=== PATIENT | male | born 1945 | race Caucasian/White ===

== ENCOUNTER 2023-06-19 09:12 | Outpatient (CLI) | payer MEDICARE, OTHER ==
[2023-06-19 10:04] LABS: Hemoglobin 17.1 g/dL (13.5-17.5); Mean Corpuscular HGB CONC 33.3 g/dL (32.0-36.0); Mean Corpuscular Hemoglobin 31.4 pg (27.0-33.0); Mean Corpuscular Volume 94.3 fl (81.2-95.1); Mean Platelet Volume 11.1 fl (7.4-10.4); Platelet Count 159 10x3/uL (150-450); RBC Distribution Width 13.5 % (11.5-14.5); Red Blood Cell (RBC) Count 5.44 10x6/uL (4.32-5.72); White Blood Cell (WBC) Count 6.9 10x3/uL (3.5-10.5)
[2023-06-19 10:36] LABS: Anion Gap 16 mmol/L (10-20); BUN (Urea Nitrogen) 27 mg/dL (8.4-25.7); Calc. Creatinine Clearance 0 mL/min (70-130); Calcium 8.8 mg/dL (7.8-10.44); Carbon Dioxide 20 mmol/L (23-31); Chloride 107 mmol/L (98-107); Estimated GFR 44; Glucose 125 mg/dL (83-110); Potassium 4.8 mmol/L (3.5-5.1); Sodium 138 mmol/L (136-145)
== END 2023-06-19 09:13 | disposition home or self-care (01) ==
LOC: LABBT 09:12
PROVIDERS: ATTEND Neurological Surgery
DX: Z01.818 Encounter for other preprocedural examination (principal); M54.12 Radiculopathy, cervical region
CPT/HCPCS: 80048; 85027; 93005; 93010

== ENCOUNTER 2023-06-19 09:30 | Inpatient (IN) | payer MEDICARE ==
[2023-06-24] MEDS ORDERED: Lidocaine 1% MPF 2 ML VIAL ONE (13:08)
[2023-06-24] MEDS ORDERED: Fentanyl 250 MCG/5 ML VIAL ONE (13:53)
[2023-06-24] MEDS ORDERED: CEFAZOLIN 2 GM VIAL ONE (14:09)
[2023-06-24] MEDS ORDERED: Sodium Chloride 0.9% 100 ML ONE (14:09)
[2023-06-24] MEDS ORDERED: Lidocaine 1% PF 5 ML VIAL ONE (14:23)
[2023-06-24] MEDS ORDERED: PROPOFOL 200 MG/20 ML VIAL ONE ×2 (14:23→17:31)
[2023-06-24] MEDS ORDERED: Rocuronium Bromide 10 MG/ML (10ML VIAL) ONE (14:23)
[2023-06-24] MEDS ORDERED: Esmolol 100 MG/10 ML VIAL ONE (14:23)
[2023-06-24] MEDS ORDERED: Dexamethasone 20 MG/5 ML VIAL ONE (14:23)
[2023-06-24] MEDS ORDERED: Ondansetron PF 4 MG/2 ML Vial ONE (14:23)
[2023-06-24] MEDS ORDERED: Promethazine HCl 25 MG/ML VIAL IM PRN ×2 (15:25→16:32)
[2023-06-24] MEDS ORDERED: Ondansetron HCl/PF 4 MG/2 ML Vial IVP PRN ×2 (15:25→16:32)
[2023-06-24] MEDS ORDERED: traMADol HCl 50 MG TAB PO PRN (15:39)
[2023-06-24] MEDS ORDERED: Promethazine 25 MG TAB PO PRN (15:39)
[2023-06-24] MEDS ORDERED: Mag-Al 1200 mg/1200 mg/30 ML UDCUP PO PRN (15:39)
[2023-06-24] MEDS ORDERED: Cyclobenzaprine 10 MG TAB PO PRN (15:39)
[2023-06-24] MEDS ORDERED: Acetaminophen/Codeine 30-300mg Tablet PO PRN ×2 (15:39)
[2023-06-24] MEDS ORDERED: Milk Of Magnesia 30 ML UDCUP PO PRN (15:39)
[2023-06-24] MEDS ORDERED: diphenhydrAMINE 50 MG/ML VIAL IVP PRN (15:39)
[2023-06-24] MEDS ORDERED: Morphine 2 MG/ML VIAL SLOW IVP PRN ×2 (15:39→19:30)
[2023-06-24] MEDS ORDERED: Acetaminophen 325 MG TAB PO PRN (15:39)
[2023-06-24] MEDS ORDERED: Melatonin 3 MG TAB PO PRN ×3 (15:41→16:30)
[2023-06-24] MEDS ORDERED: Zolpidem Tartrate 5 MG TAB PO PRN (15:42)
[2023-06-24] MEDS ORDERED: fentaNYL 50 mcg/mL 1 mL Vial ONE ×3 (16:06→18:19)
[2023-06-24] MEDS ORDERED: Labetalol HCl 100 MG/20 ML VIAL ONE (16:30)
[2023-06-24] MEDS ORDERED: Morphine 2 MG/ML VIAL ONE (16:30)
[2023-06-24] MEDS ORDERED: PACU-Morphine 4MG/ML VIAL SLOW IVP PRN (16:32)
[2023-06-24] MEDS ORDERED: HYDROmorphone 2 MG/ML VIAL SLOW IVP PRN (16:32)
[2023-06-24] MEDS ORDERED: Morphine Sulfate 2 MG/ML SYRINGE SLOW IVP PRN (16:32)
[2023-06-24] MEDS ORDERED: Adenosine 6 MG/2 ML VIAL ONE (16:58)
[2023-06-24] MEDS ORDERED: Ipratropium/Albuterol 3 ML NEB ONE (16:58)
[2023-06-24] MEDS ORDERED: Dexamethasone 4 mg/ml Vial ONE (16:58)
[2023-06-24] MEDS ORDERED: Midazolam HCl 2 mg/2 ml Vial ONE ×2 (17:02→17:15)
[2023-06-24] MEDS ORDERED: SUGAMMADEX SODIUM 200 MG/2 ML VIAL ONE (17:07)
[2023-06-24] MEDS ORDERED: CEFAZOLIN 1 GM VIAL ONE (17:29)
[2023-06-24] MEDS ORDERED: PROPOFOL 20 ML ONE (17:29)
[2023-06-24] MEDS ORDERED: Thrombin 5000 UNITS/5 ML VIAL ONE (17:30)
[2023-06-24] MEDS ORDERED: Vancomycin 1 GM VIAL ONE ×2 (17:30→17:40)
[2023-06-24] MEDS ORDERED: Vecuronium 10 MG VIAL ONE (17:31)
[2023-06-24] MEDS ORDERED: PHENYLEPHRINE-NS 100 MCG/ML 10 ML SYRINGE ONE (17:31)
[2023-06-24] MEDS ORDERED: Norepinephrine 4 MG/4 ML VIAL ONE (17:41)
[2023-06-24] MEDS ORDERED: Ventilator Sedation Protocol 1 EACH FS SCH (19:25)
[2023-06-24] MEDS ORDERED: Electrolyte Replacement Protocol 1 EACH FS ONE (19:25)
[2023-06-24 19:27] LABS: Actual Bicarbonate (HCO3a) 21.8 mEq/L (22-28); Base Excess (BEa) -3.1 mEq/L (-2.0 to +3.0); CO2 Tension 39.1 mmHg (35.0-45.0); Calcium, Ionized (arterial) 1.12 mmol/L (1.12-1.30); Carboxyhemoglobin (COHb) 0.5 gm% (0.0-3.0); Hematocrit-ABG 49 % (42.0-52.0); Hemoglobin (Hb) 16.8 g/dL (14.0-18.0); Potassium - ABG Lab 4.48 mmol/L (3.70-5.30); pH, Arterial 7.365 (7.35-7.45)
[2023-06-24 19:28] LABS: Puncture Site RRA
[2023-06-24 19:29] LABS: ALV-art Gradient 213.625 mmHg (0-20)
[2023-06-24] MEDS ORDERED: Electrolyte Replacement Protocol FS PRN (19:30)
[2023-06-24] MEDS ORDERED: Propofol BOLUS 1,000 MG/100 ML VIAL IV PRN (19:30)
[2023-06-24] MEDS ORDERED: Fentanyl BOLUS 250 ML IVPB PRN (19:30)
[2023-06-24] MEDS ORDERED: Fentanyl CADD 100 ML IV SCH (19:30)
[2023-06-24] MEDS ORDERED: DISCONTINUE PREVIOUS NARCOTIC PAIN MEDICATIONS AND BENZODIAZEPINES FS SCH (19:30)
[2023-06-24 20:03] LABS: #Monocytes 0.3 thou/uL (0.11-0.59); #Neutrophils 15.7 thou/uL (1.40-6.50); %Basophils 0.2 % (0.0-1.0); %Eosinophils 0.1 % (0.0-10.0); %Lymphocytes 2.7 % (21.0-51.0); %Monocytes 1.6 % (0.0-10.0); Hemoglobin 16.4 g/dL (14.0-18.0); Mean Corpuscular HGB CONC 32.2 g/dL (32.0-36.0); Mean Corpuscular Volume 96.4 fl (78.0-98.0); Mean Platelet Volume 10.8 fL (7.4-10.4); Platelet Count 148 10x3/uL (130-400); RBC Distribution Width 13.6 % (11.5-14.5); Red Blood Cell (RBC) Count 5.29 mill/uL (4.70-6.10); White Blood Cell (WBC) Count 16.5 10x3/uL (4.8-10.8)
[2023-06-24] MEDS: Dexamethasone 4 mg/ml Vial SLOW IVP SCH (20:22)
[2023-06-24] MEDS: Sodium Chloride 0.9% 1,000 ML IV SCH (20:22)
[2023-06-24] MEDS ORDERED: Fentanyl CADD 100 ML ONE (20:32)
[2023-06-24 20:33] LABS: Anion Gap 15 mmol/L (10-20); BUN (Urea Nitrogen) 20 mg/dL (8.4-25.7); Calc. Creatinine Clearance 43 mL/min (70-130); Calcium 8.3 mg/dL (7.8-10.44); Carbon Dioxide 23 mmol/L (23-31); Chloride 105 mmol/L (98-107); Estimated GFR 47; Glucose 170 mg/dL (83-110); Potassium 4.7 mmol/L (3.5-5.1); Sodium 138 mmol/L (136-145)
[2023-06-24] MEDS: CEFAZOLIN 2 GM in Sodium Chloride 0.9% 100 ML IVPB SCH (22:56)
[2023-06-25] MEDS: Dexamethasone 4 mg/ml Vial SLOW IVP SCH ×5 (01:25→23:41)
[2023-06-25] MEDS: Propofol 1,000 MG/100 ML VIAL IV PRN ×3 (01:25→10:05)
[2023-06-25 04:49] LABS: Anion Gap 8 mmol/L (10-20); BUN (Urea Nitrogen) 22 mg/dL (8.4-25.7); Calc. Creatinine Clearance 44 mL/min (70-130); Calcium 7.9 mg/dL (7.8-10.44); Carbon Dioxide 17 mmol/L (23-31); Chloride 112 mmol/L (98-107); Estimated GFR 49; Glucose 175 mg/dL (83-110); Potassium 4.9 mmol/L (3.5-5.1); Sodium 132 mmol/L (136-145)
[2023-06-25] MEDS: CEFAZOLIN 2 GM in Sodium Chloride 0.9% 100 ML IVPB SCH ×3 (05:09→21:50)
[2023-06-25] MEDS: Sodium Chloride 0.9% 1,000 ML IV SCH ×3 (05:10→22:56)
[2023-06-25 07:02] LABS: Actual Bicarbonate (HCO3a) 18.5 mEq/L (22-28); Base Excess (BEa) -4.8 mEq/L (-2.0 to +3.0); CO2 Tension 30.4 mmHg (35.0-45.0); Calcium, Ionized (arterial) 1.07 mmol/L (1.12-1.30); Carboxyhemoglobin (COHb) 1.1 gm% (0.0-3.0); Hematocrit-ABG 46 % (42.0-52.0); Hemoglobin (Hb) 15.5 g/dL (14.0-18.0); O2 Tension (PaO2), arterial 133.7 mmHg (> 70.0); Potassium - ABG Lab 4.66 mmol/L (3.70-5.30); pH, Arterial 7.403 (7.35-7.45)
[2023-06-25 07:03] LABS: Puncture Site RRA
[2023-06-25] MEDS: Pantoprazole 40 MG VIAL IVP SCH (08:14)
[2023-06-25 10:05] LABS: INR-International Normal Ratio 1.1; PTT 26.9 sec (22.9-36.1); Prothrombin Time 15.1 sec (12.0-14.7)
[2023-06-25] MEDS: Lorazepam 2 MG/ML VIAL SLOW IVP PRN ×2 (10:57→13:57)
[2023-06-26] MEDS ORDERED: Fentanyl CADD 100 ML ONE (00:56)
[2023-06-26] MEDS: CEFAZOLIN 2 GM in Sodium Chloride 0.9% 100 ML IVPB SCH ×3 (06:16→21:43)
[2023-06-26] MEDS: Dexamethasone 4 mg/ml Vial SLOW IVP SCH ×3 (06:16→17:28)
[2023-06-26] MEDS: Sodium Chloride 0.9% 1,000 ML IV SCH ×3 (06:17→21:34)
[2023-06-26] MEDS: Propofol 1,000 MG/100 ML VIAL IV PRN ×2 (06:19→18:05)
[2023-06-26] MEDS: Ondansetron PF 4 MG/2 ML Vial IVP PRN (06:34)
[2023-06-26 07:22] LABS: Actual Bicarbonate (HCO3a) 20.8 mEq/L (22-28); Base Excess (BEa) -5.8 mEq/L (-2.0 to +3.0); CO2 Tension 44.4 mmHg (35.0-45.0); Calcium, Ionized (arterial) 1.09 mmol/L (1.12-1.30); Carboxyhemoglobin (COHb) 0.6 gm% (0.0-3.0); Hematocrit-ABG 47 % (42.0-52.0); Hemoglobin (Hb) 15.9 g/dL (14.0-18.0); O2 Tension (PaO2), arterial 103.9 mmHg (> 70.0); Puncture Site LRA; pH, Arterial 7.288 (7.35-7.45)
[2023-06-26] MEDS: Pantoprazole 40 MG VIAL IVP SCH (08:45)
[2023-06-26] MEDS ORDERED: chlorproMAZINE HCl 50 MG/2 ML AMP SLOW IVP PRN (08:54)
[2023-06-26 09:44] LABS: #Monocytes 0.6 thou/uL (0.11-0.59); #Neutrophils 14.3 thou/uL (1.40-6.50); %Basophils 0.1 % (0.0-1.0); %Lymphocytes 3.2 % (21.0-51.0); %Monocytes 3.6 % (0.0-10.0); %Neutrophils 92.6 % (42.0-75.0); Hematocrit 43.2 % (42.0-52.0); Hemoglobin 13.9 g/dL (14.0-18.0); Mean Corpuscular HGB CONC 32.2 g/dL (32.0-36.0); Mean Corpuscular Hemoglobin 31.3 pg (27.0-31.0); Mean Corpuscular Volume 97.3 fl (78.0-98.0); Mean Platelet Volume 11.6 fL (7.4-10.4); Platelet Count 148 10x3/uL (130-400); RBC Distribution Width 13.8 % (11.5-14.5); Red Blood Cell (RBC) Count 4.44 mill/uL (4.70-6.10); White Blood Cell (WBC) Count 15.5 10x3/uL (4.8-10.8)
[2023-06-26 10:08] LABS: ALT (SGPT) 9 U/L (8-55); AST (SGOT) 28 U/L (5-34); Albumin 3.2 g/dL (3.4-4.8); Alkaline Phosphatase 56 U/L (40-110); Anion Gap 8 mmol/L (10-20); BUN (Urea Nitrogen) 29 mg/dL (8.4-25.7); Bilirubin, Total Less than 1.0 mg/dL (0.2-1.2); Calc. Creatinine Clearance 52 mL/min (70-130); Calcium 7.6 mg/dL (7.8-10.44); Carbon Dioxide 25 mmol/L (23-31); Chloride 110 mmol/L (98-107); Estimated GFR 53; Globulin 2.3 g/dL (2.4-3.5); Glucose 177 mg/dL (83-110); Potassium 4.2 mmol/L (3.5-5.1); Protein, Total 5.5 g/dL (5.8-8.1); Sodium 139 mmol/L (136-145)
[2023-06-27] MEDS: Dexamethasone 4 mg/ml Vial SLOW IVP SCH ×4 (00:18→21:24)
[2023-06-27] MEDS: Sodium Chloride 0.9% 1,000 ML IV SCH ×2 (00:32→05:21)
[2023-06-27 03:37] LABS: #Monocytes 0.4 thou/uL (0.11-0.59); %Basophils 0.1 % (0.0-1.0); %Lymphocytes 2.4 % (21.0-51.0); %Monocytes 3.2 % (0.0-10.0); %Neutrophils 93.8 % (42.0-75.0); Hematocrit 42.7 % (42.0-52.0); Hemoglobin 13.6 g/dL (14.0-18.0); Mean Corpuscular HGB CONC 31.9 g/dL (32.0-36.0); Mean Corpuscular Volume 97.3 fl (78.0-98.0); Mean Platelet Volume 12.1 fL (7.4-10.4); Platelet Count 134 10x3/uL (130-400); Red Blood Cell (RBC) Count 4.39 mill/uL (4.70-6.10); White Blood Cell (WBC) Count 12.8 10x3/uL (4.8-10.8)
[2023-06-27 04:07] LABS: ALT (SGPT) 8 U/L (8-55); AST (SGOT) 27 U/L (5-34); Albumin 3.2 g/dL (3.4-4.8); Alkaline Phosphatase 52 U/L (40-110); Anion Gap 16 mmol/L (10-20); BUN (Urea Nitrogen) 33 mg/dL (8.4-25.7); Bilirubin, Total 0.5 mg/dL (0.2-1.2); Calc. Creatinine Clearance 57 mL/min (70-130); Calcium 7.7 mg/dL (7.8-10.44); Carbon Dioxide 19 mmol/L (23-31); Chloride 112 mmol/L (98-107); Estimated GFR 59; Globulin 2.2 g/dL (2.4-3.5); Glucose 179 mg/dL (83-110); Potassium 4.5 mmol/L (3.5-5.1); Protein, Total 5.4 g/dL (5.8-8.1); Sodium 142 mmol/L (136-145)
[2023-06-27] MEDS: CEFAZOLIN 2 GM in Sodium Chloride 0.9% 100 ML IVPB SCH ×3 (05:21→21:24)
[2023-06-27] MEDS: Pantoprazole 40 MG VIAL IVP SCH (08:10)
[2023-06-27] MEDS: Labetalol HCl 100 MG/20 ML VIAL SLOW IVP PRN ×3 (08:10→18:11)
[2023-06-27] MEDS: Ondansetron PF 4 MG/2 ML Vial IVP PRN ×2 (09:58→18:16)
[2023-06-27] MEDS: Ipratropium Bromide 2.5 ml Neb NEB SCH ×3 (13:30→23:40)
[2023-06-27] MEDS ORDERED: Morphine 2 MG/ML VIAL SLOW IVP PRN (14:11)
[2023-06-27] MEDS: Morphine 2 MG/ML VIAL SLOW IVP PRN ×2 (14:28→18:09)
[2023-06-27] MEDS: fentaNYL 50 mcg/mL 1 mL Vial SLOW IVP PRN ×2 (16:10→19:59)
[2023-06-27] MEDS: Lidocaine 4% Patch TD SCH (20:00)
[2023-06-27] MEDS ORDERED: fentaNYL 50 mcg/mL 1 mL Vial SLOW IVP SCH (20:30)
[2023-06-27] MEDS ORDERED: Labetalol HCl 100 MG/20 ML VIAL SLOW IVP SCH (20:30)
[2023-06-27] MEDS: niCARdipine 25 MG in Sodium Chloride 0.9% 250 ML 250 ML IVPB SCH (21:23)
[2023-06-27] MEDS ORDERED: Promethazine HCl 12.5 MG in Sodium Chloride 0.9% 50 ML IVPB SCH (21:30)
[2023-06-27] MEDS ORDERED: Furosemide 40 MG/4 ML VIAL ONE (22:12)
[2023-06-27] MEDS ORDERED: Furosemide 40 MG/4 ML VIAL SLOW IVP SCH (22:15)
[2023-06-27] MEDS ORDERED: Nitroglycerin 2% Ointment 1 INCH/1 GM Packet ONE (22:23)
[2023-06-27] MEDS ORDERED: Nitroglycerin 2% Ointment 1 INCH/1 GM Packet TOP SCH (22:30)
[2023-06-27 22:31] LABS: Actual Bicarbonate (HCO3a) 23.3 mEq/L (22-28); Base Excess (BEa) -2.6 mEq/L (-2.0 to +3.0); CO2 Tension 43.8 mmHg (35.0-45.0); Calcium, Ionized (arterial) 1.15 mmol/L (1.12-1.30); Carboxyhemoglobin (COHb) 0.9 gm% (0.0-3.0); Hematocrit-ABG 50 % (42.0-52.0); Hemoglobin (Hb) 17.1 g/dL (14.0-18.0); O2 Tension (PaO2), arterial 108.3 mmHg (> 70.0); Potassium - ABG Lab 4.51 mmol/L (3.70-5.30); Puncture Site RRA; pH, Arterial 7.343 (7.35-7.45)
[2023-06-27 22:40] LABS: #Monocytes 1.3 thou/uL (0.11-0.59); #Neutrophils 18.2 thou/uL (1.40-6.50); %Basophils 0.1 % (0.0-1.0); %Monocytes 6.3 % (0.0-10.0); %Neutrophils 89.7 % (42.0-75.0); Hemoglobin 16.4 g/dL (14.0-18.0); Mean Corpuscular HGB CONC 32.8 g/dL (32.0-36.0); Mean Corpuscular Hemoglobin 31.4 pg (27.0-31.0); Mean Corpuscular Volume 95.8 fl (78.0-98.0); Mean Platelet Volume 11.5 fL (7.4-10.4); Platelet Count 184 10x3/uL (130-400); Red Blood Cell (RBC) Count 5.22 mill/uL (4.70-6.10); White Blood Cell (WBC) Count 20.3 10x3/uL (4.8-10.8)
[2023-06-27 22:55] LABS: Lactic Acid 2.1 mmol/L (0.5-2.2)
[2023-06-27 23:04] LABS: ALT (SGPT) 11 U/L (8-55); AST (SGOT) 30 U/L (5-34); Albumin 3.9 g/dL (3.4-4.8); Alkaline Phosphatase 68 U/L (40-110); Anion Gap 15 mmol/L (10-20); BUN (Urea Nitrogen) 32 mg/dL (8.4-25.7); Calc. Creatinine Clearance 55 mL/min (70-130); Calcium 8.3 mg/dL (7.8-10.44); Carbon Dioxide 21 mmol/L (23-31); Chloride 112 mmol/L (98-107); Estimated GFR 55; Globulin 2.4 g/dL (2.4-3.5); Glucose 172 mg/dL (83-110); Potassium 4.7 mmol/L (3.5-5.1); Protein, Total 6.3 g/dL (5.8-8.1); Sodium 143 mmol/L (136-145)
[2023-06-27 23:07] LABS: Magnesium 2.5 mg/dL (1.6-2.6)
[2023-06-27 23:19] LABS: Troponin I 1.995 ng/mL (< 0.028)
[2023-06-28 03:42] LABS: #Monocytes 0.8 thou/uL (0.11-0.59); #Neutrophils 13.7 thou/uL (1.40-6.50); %Basophils 0.1 % (0.0-1.0); %Lymphocytes 3.8 % (21.0-51.0); %Monocytes 5.1 % (0.0-10.0); %Neutrophils 90.4 % (42.0-75.0); Mean Corpuscular HGB CONC 31.9 g/dL (32.0-36.0); Mean Corpuscular Volume 97.1 fl (78.0-98.0); Mean Platelet Volume 11.7 fL (7.4-10.4); Platelet Count 156 10x3/uL (130-400); RBC Distribution Width 14.1 % (11.5-14.5); Red Blood Cell (RBC) Count 4.84 mill/uL (4.70-6.10); White Blood Cell (WBC) Count 15.1 10x3/uL (4.8-10.8)
[2023-06-28 04:13] LABS: ALT (SGPT) 10 U/L (8-55); AST (SGOT) 30 U/L (5-34); Albumin 3.3 g/dL (3.4-4.8); Alkaline Phosphatase 58 U/L (40-110); Anion Gap 17 mmol/L (10-20); BUN (Urea Nitrogen) 34 mg/dL (8.4-25.7); Calc. Creatinine Clearance 55 mL/min (70-130); Carbon Dioxide 20 mmol/L (23-31); Chloride 111 mmol/L (98-107); Estimated GFR 55; Globulin 2.5 g/dL (2.4-3.5); Glucose 147 mg/dL (83-110); Potassium 4.8 mmol/L (3.5-5.1); Protein, Total 5.8 g/dL (5.8-8.1); Sodium 143 mmol/L (136-145)
[2023-06-28] MEDS: CEFAZOLIN 2 GM in Sodium Chloride 0.9% 100 ML IVPB SCH ×3 (05:39→21:54)
[2023-06-28] MEDS: Dexamethasone 4 mg/ml Vial SLOW IVP SCH ×2 (05:39→09:37)
[2023-06-28] MEDS: Ipratropium Bromide 2.5 ml Neb NEB SCH (06:05)
[2023-06-28 07:20] LABS: Troponin I 3.672 ng/mL (< 0.028)
[2023-06-28] MEDS: fentaNYL 50 mcg/mL 1 mL Vial SLOW IVP PRN ×3 (07:41→18:29)
[2023-06-28] MEDS: Ondansetron PF 4 MG/2 ML Vial IVP PRN (09:36)
[2023-06-28] MEDS: Transdermal Patch Removal TOP SCH (09:49)
[2023-06-28] MEDS: Pantoprazole 40 MG VIAL IVP SCH (09:49)
[2023-06-28] MEDS ORDERED: Metoclopramide HCl 10 MG/2 ML VIAL IVP PRN (11:46)
[2023-06-28] MEDS: Ipratropium/Albuterol 3 ML NEB EZPAP SCH ×3 (12:01→22:05)
[2023-06-28] MEDS: niCARdipine 25 MG in Sodium Chloride 0.9% 250 ML 250 ML IVPB SCH ×2 (16:18→23:46)
[2023-06-28] MEDS: Lidocaine 4% Patch TD SCH (20:11)
[2023-06-29 04:12] LABS: #Monocytes 0.9 thou/uL (0.11-0.59); #Neutrophils 8.7 thou/uL (1.40-6.50); %Basophils 0.1 % (0.0-1.0); %Lymphocytes 6.5 % (21.0-51.0); %Monocytes 8.7 % (0.0-10.0); %Neutrophils 84.3 % (42.0-75.0); Hematocrit 49.5 % (42.0-52.0); Hemoglobin 16.1 g/dL (14.0-18.0); Mean Corpuscular HGB CONC 32.5 g/dL (32.0-36.0); Mean Corpuscular Hemoglobin 31.1 pg (27.0-31.0); Mean Corpuscular Volume 95.6 fl (78.0-98.0); Mean Platelet Volume 11.1 fL (7.4-10.4); Platelet Count 150 10x3/uL (130-400); RBC Distribution Width 13.6 % (11.5-14.5); Red Blood Cell (RBC) Count 5.18 mill/uL (4.70-6.10); White Blood Cell (WBC) Count 10.3 10x3/uL (4.8-10.8)
[2023-06-29 04:36] LABS: ALT (SGPT) 8 U/L (8-55); AST (SGOT) 26 U/L (5-34); Albumin 3.4 g/dL (3.4-4.8); Alkaline Phosphatase 58 U/L (40-110); Anion Gap 12 mmol/L (10-20); BUN (Urea Nitrogen) 30 mg/dL (8.4-25.7); Bilirubin, Total 1.7 mg/dL (0.2-1.2); Calc. Creatinine Clearance 67 mL/min (70-130); Calcium 8.3 mg/dL (7.8-10.44); Carbon Dioxide 24 mmol/L (23-31); Chloride 109 mmol/L (98-107); Estimated GFR 70; Globulin 2.4 g/dL (2.4-3.5); Glucose 127 mg/dL (83-110); Potassium 3.8 mmol/L (3.5-5.1); Protein, Total 5.8 g/dL (5.8-8.1); Sodium 141 mmol/L (136-145)
[2023-06-29 04:43] LABS: Critical Call Chem Troponin I RESULT DECREASING
[2023-06-29] MEDS: CEFAZOLIN 2 GM in Sodium Chloride 0.9% 100 ML IVPB SCH ×3 (06:16→20:46)
[2023-06-29] MEDS: Ipratropium/Albuterol 3 ML NEB EZPAP SCH ×4 (06:54→23:42)
[2023-06-29] MEDS ORDERED: Phenol 177 ML BOT PO PRN (08:13)
[2023-06-29] MEDS: niCARdipine 25 MG in Sodium Chloride 0.9% 250 ML 250 ML IVPB SCH ×3 (08:54→23:26)
[2023-06-29] MEDS: Transdermal Patch Removal TOP SCH (08:55)
[2023-06-29] MEDS: Dexamethasone 4 mg/ml Vial SLOW IVP SCH (08:55)
[2023-06-29] MEDS: Pantoprazole 40 MG VIAL IVP SCH (08:55)
[2023-06-29] MEDS: Benzocaine/Menthol 1 LOZ LOZ PO PRN ×2 (11:29→21:03)
[2023-06-29] MEDS: fentaNYL 50 mcg/mL 1 mL Vial SLOW IVP PRN ×2 (12:25→17:15)
[2023-06-29] MEDS: Lidocaine 4% Patch TD SCH (20:47)
[2023-06-30 03:38] LABS: #Monocytes 0.8 thou/uL (0.11-0.59); #Neutrophils 9.3 thou/uL (1.40-6.50); %Basophils 0.1 % (0.0-1.0); %Eosinophils 0.2 % (0.0-10.0); %Lymphocytes 6.7 % (21.0-51.0); %Monocytes 6.9 % (0.0-10.0); %Neutrophils 85.8 % (42.0-75.0); Hematocrit 49.1 % (42.0-52.0); Hemoglobin 16.3 g/dL (14.0-18.0); Mean Corpuscular HGB CONC 33.2 g/dL (32.0-36.0); Mean Corpuscular Hemoglobin 31.4 pg (27.0-31.0); Mean Corpuscular Volume 94.6 fl (78.0-98.0); Mean Platelet Volume 11.1 fL (7.4-10.4); Platelet Count 154 10x3/uL (130-400); RBC Distribution Width 13.4 % (11.5-14.5); Red Blood Cell (RBC) Count 5.19 mill/uL (4.70-6.10); White Blood Cell (WBC) Count 10.8 10x3/uL (4.8-10.8)
[2023-06-30 04:04] LABS: ALT (SGPT) 15 U/L (8-55); AST (SGOT) 29 U/L (5-34); Albumin 3.3 g/dL (3.4-4.8); Alkaline Phosphatase 61 U/L (40-110); Anion Gap 12 mmol/L (10-20); BUN (Urea Nitrogen) 30 mg/dL (8.4-25.7); Bilirubin, Total 2.4 mg/dL (0.2-1.2); Calc. Creatinine Clearance 72 mL/min (70-130); Calcium 8.7 mg/dL (7.8-10.44); Carbon Dioxide 25 mmol/L (23-31); Chloride 110 mmol/L (98-107); Estimated GFR 75; Globulin 2.4 g/dL (2.4-3.5); Glucose 128 mg/dL (83-110); Potassium 4.1 mmol/L (3.5-5.1); Protein, Total 5.7 g/dL (5.8-8.1); Sodium 143 mmol/L (136-145)
[2023-06-30] MEDS: niCARdipine 25 MG in Sodium Chloride 0.9% 250 ML 250 ML IVPB SCH (05:43)
[2023-06-30] MEDS: CEFAZOLIN 2 GM in Sodium Chloride 0.9% 100 ML IVPB SCH (06:27)
[2023-06-30] MEDS: Ipratropium/Albuterol 3 ML NEB EZPAP SCH (07:00)
[2023-06-30] MEDS: Pantoprazole 40 MG VIAL IVP SCH (08:31)
[2023-06-30 09:57] VITALS: TEMP 98
[2023-06-30 11:51] VITALS: BMI 29.7
[2023-06-30 12:58] VITALS: BP 161/79
== END 2023-06-30 11:20 | disposition home or self-care (01) | DRG 471 ==
LOC: SURG A 06-24 09:11 → CCU 06-24 18:32
PROVIDERS: ADMIT Neurological Surgery; ATTEND Neurological Surgery
PROC: 0RG20A0 Fusion of 2 or more Cervical Vertebral Joints with Interbody Fusion Device, Anterior Approach, Anterior Column, Open Approach (ICD-10-PCS; principal; 2023-06-24)
PROC: 0RB30ZZ Excision of Cervical Vertebral Disc, Open Approach (ICD-10-PCS; 2023-06-24)
PROC: 00C Central Nervous System and Cranial Nerves, Extirpation (ICD-10-PCS; 2023-06-24)
PROC: 5A1945Z Respiratory Ventilation, 24-96 Consecutive Hours (ICD-10-PCS; 2023-06-24)
PROC: 4A133R1 Monitoring of Arterial Saturation, Peripheral, Percutaneous Approach (ICD-10-PCS; 2023-06-24)
PROC: 0BH17EZ Insertion of Endotracheal Airway into Trachea, Via Natural or Artificial Opening (ICD-10-PCS; 2023-06-24)
PROC: 5A09357 Assistance with Respiratory Ventilation, Less than 24 Consecutive Hours, Continuous Positive Airway Pressure (ICD-10-PCS; 2023-06-27)
PROC: 8E0ZXY6 Isolation (ICD-10-PCS; 2023-06-27)
DX: M47.812 Spondylosis without myelopathy or radiculopathy, cervical region (principal); I21.4 Non-ST elevation (NSTEMI) myocardial infarction; J96.00 Acute respiratory failure, unspecified whether with hypoxia or hypercapnia; U07.1 COVID-19; L76.32 Postprocedural hematoma of skin and subcutaneous tissue following other procedure; E87.1 Hypo-osmolality and hyponatremia; E87.20 Acidosis, unspecified; J98.11 Atelectasis; J81.1 Chronic pulmonary edema; M19.90 Unspecified osteoarthritis, unspecified site; E78.5 Hyperlipidemia, unspecified; I73.9 Peripheral vascular disease, unspecified; M10.9 Gout, unspecified; R73.03 Prediabetes; Y83.8 Other surgical procedures as the cause of abnormal reaction of the patient, or of later complication, without mention of misadventure at the time of the procedure; J98.8 Other specified respiratory disorders; D72.829 Elevated white blood cell count, unspecified; G47.30 Sleep apnea, unspecified; R13.10 Dysphagia, unspecified; I12.9 Hypertensive chronic kidney disease with stage 1 through stage 4 chronic kidney disease, or unspecified chronic kidney disease; N18.9 Chronic kidney disease, unspecified; Z98.890 Other specified postprocedural states; Z87.891 Personal history of nicotine dependence; M50.321 Other cervical disc degeneration at C4-C5 level; I25.10 Atherosclerotic heart disease of native coronary artery without angina pectoris
CPT/HCPCS: 36415; 36600; 71045; 72020; 74018; 80048; 80053; 82805; 83605; 83735; 83880; 84145; 84484; 85025; 85610; 85730; 87040; 87070; 87086; 87205; 87635; 89220; 93005; 93010; 93306; 94002; 94003; 94640; 94660; C1713; C9113; J0153; J0690; J1100; J1940; J2060; J2250; J2272; J2405; J2550; J2704; J2765; J3010; J3230; J3370; J3490; J7050; J7611; J7620

== ENCOUNTER 2024-02-19 08:06 | Outpatient (CLI) | payer MEDICARE | END 2024-02-19 08:07 | disposition home or self-care (01) | LOC: BICMAMMO 08:06 | PROVIDERS: ATTEND Family Medicine | DX: Z13.820 Encounter for screening for osteoporosis (principal); E23.0 Hypopituitarism | CPT/HCPCS: 77080 ==